=== PATIENT | male | born 1940 | race Caucasian/White ===

== ENCOUNTER → 2018-05-04 | Outpatient (CLI) | payer MEDICARE, BC ==
[~2018-05-04] MED LIST: CEPHALEXIN500 M1 PO; CRESTOR 10MG10 MG PO; FLOMAX 0.40.4 MG/CAP PO; PROSCAR 5MG5 MG PO; ZOCOR 40MG40 MG PO
== END ==
LOC: COL.VAS 10:28
DX: R22.42 Localized swelling, mass and lump, left lower limb (principal); M79.605 Pain in left leg

== ENCOUNTER 2019-08-01 10:42 | Inpatient (IN) | payer MEDICARE, BC ==
[~2019-08-01] VITALS: Ht 177.8 cm; Wt 101.1 kg
[2019-08-01] VITALS (12 sets, daily range): BP systolic 107–158; BP diastolic 52–99; PULSE 62–86; TEMP 97–97.5
[2019-08-01 11:30] LABS: HEMATOCRIT 46.9 % (42.0-52.0); HEMOGLOBIN 15.7 g/dl (13.5-18.0); MEAN CELL VOLUME 87 fl (80.0-100.0); MEAN CORPUSCULAR HEMOGLOBIN 29 pg (27.0-31.0); MEAN CORPUSCULAR HGB CONC 34 g/dl (33.0-37.0); MEAN PLATELET VOLUME 9.2 fl (7.4-10.4); PLATELET COUNT 269 K/mm3 (130-400); RED BLOOD COUNT 5.39 M/mm3 (4.20-5.60); REDCELL DISTRIBUTION WIDTH-CV 13.2 % (11.5-14.5)
[2019-08-01 11:38] LABS: CALCIUM 9.5 mg/dL (8.4-10.2); CREATININE, serum 1.08 (0.66-1.25); MAGNESIUM 2.1 mg/dL (1.6-2.3); POTASSIUM 4.2 mmol/L (3.4-5.0)
[2019-08-01 11:47] LABS: INR 1.3 (0.8-3.0); PROTHROMBIN TIME 15.1 SECONDS (9.7-12.8)
[2019-08-01 11:50] LABS: PARTIAL THROMBOPLASTIN TIME 42.6 SECONDS (26.0-37.0)
[2019-08-01] MEDS ORDERED: ELIQUIS 5MG PO (11:57)
[2019-08-01] MEDS ORDERED: TOPROL XL 25MG25 MG PO (11:58)
[2019-08-01 12:08] LABS: THYROID STIMULATING HORMONE 2.41 uIU/mL (0.465-4.680)
--- NOTE | 2019-08-01 13:15 | NUR ---
LLOYD/CV complete and report received from Kiara Almazan RN. Pt resting well in bed, family at bedside.
--- NOTE | 2019-08-01 15:30 | NUR ---
Pt has ambulated and joseline PO intake s n/v.
--- NOTE | 2019-08-01 15:45 | NUR ---
Phone report given to Samantha MOORE on medical.
--- NOTE | 2019-08-01 16:10 | NUR ---
PATIENT ADMITED INTO ROOM 318 POST CARDIOVERSION. PATIENT WILL START A SOTOLOL TRIAL. TELE INPLACE WITH HR IN 70'S IN SR. HEART SOUNDS REGULAR. PATIENT DENIES SOB OR CHEST PAIN. HEAD TO TOE ASSESSMENT WNL. SON AT BEDSIDE. ORIENTED TO ROOM. CALL LIGHT IN REACH.
--- NOTE | 2019-08-01 16:10 | NUR ---
Pt transfered to [facility] per w/c by nurse with son. Samantha RN notified and care transfered to [facility] at this time.
--- NOTE | 2019-08-01 20:15 | NUR ---
Patient in chair, awake. Denies pain. Most recent ekg QTc 432. First dose sotalol given. Tele reading afib, viviana 57. Denies further needs at this time. Will continue to monitor.
--- NOTE | 2019-08-02 02:07 | NUR ---
Patient in bed, awake. Denies pain. Denies further needs at this time. Will continue to monitor.
--- NOTE | 2019-08-02 04:40 | NUR ---
Patient in bed, resting. Tele is showing SR. Patient states he feels better, and less SOB. Denies pain. Denies further needs at this time. Will continue to monitor.
[2019-08-02 04:42] VITALS: BP 107/52; PULSE 65; TEMP 97.9
[2019-08-02 06:44] LABS: BASO % 0.5 % (0.0-2.0); EOS # 0.2 (0.0-0.7); EOS % 2.7 % (0-4.0); GRAN # 4.8 (1.4-6.5); GRAN % 56.9 % (42.2-75.2); HEMATOCRIT 39.8 % (42.0-52.0); LYMPH # 2.2 (1.2-3.4); LYMPH % 26.7 % (20.0-51.0); MEAN CELL VOLUME 89 fl (80.0-100.0); MEAN CORPUSCULAR HEMOGLOBIN 29 pg (27.0-31.0); MEAN CORPUSCULAR HGB CONC 33 g/dl (33.0-37.0); MEAN PLATELET VOLUME 9.8 fl (7.4-10.4); MONO # 1.1 (0.1-0.6); MONO % 12.7 % (1.7-9.3); PLATELET COUNT 250 K/mm3 (130-400); RED BLOOD COUNT 4.45 M/mm3 (4.20-5.60); REDCELL DISTRIBUTION WIDTH-CV 13.3 % (11.5-14.5)
[2019-08-02 06:46] LABS: INR 1.2 (0.8-3.0); PROTHROMBIN TIME 14.6 SECONDS (9.7-12.8)
[2019-08-02 06:51] LABS: HEMOGLOBIN 13.1 g/dl (13.5-18.0)
[2019-08-02 06:56] LABS: CALCIUM 8.9 mg/dL (8.4-10.2); CREATININE, serum 1.13 (0.66-1.25); POTASSIUM 4.1 mmol/L (3.4-5.0)
[2019-08-02 08:05] VITALS: BP 124/73; PULSE 58; TEMP 97.7
--- NOTE | 2019-08-02 08:43 | NUR ---
Pt awake and sitting up in the recliner, no C/O pain at this time, talkative, shift assessment complete, left Pt call light in reach.
--- NOTE | 2019-08-02 09:06 | NUR ---
SW met with the patient to discuss discharge plan. The patient lives [place] with his , Laurel (ph#[phone]). He reports independence with ADLs and has a walking stick. The patient's PCP is Dr. Jaquan Thompson and he receives his medications at [facility]. He reports no difficulties obtaining his meds. The patient does not have advanced directives in EMR, but he states that he does have them completed and at home. He states that his DPOA-HC is his son, Ilya Moncada. The patient plans to return home with his upon discharge. No additional needs at this time.
[2019-08-02 11:47] VITALS: BP 115/67; PULSE 55; TEMP 97.4
[2019-08-02 16:48] VITALS: BP 125/67; PULSE 58; TEMP 97.5
[2019-08-02 19:17] VITALS: BP 136/60; PULSE 55; TEMP 97.2
--- NOTE | 2019-08-02 19:27 | NUR ---
Pt resting in room today, no C/O pain throughout, VS have remained stable.
--- NOTE | 2019-08-02 19:28 | NUR ---
Report given to TERESA Marquez.
--- NOTE | 2019-08-02 20:00 | NUR ---
Resting in bed. Assessment complete. Lungs clear. Heart sounds normal. Bowels active x4. Pulses strong throughout. Bilateral lower leg edema +1. INT left forearm without complications. Patient denies pain. Denies needs at this time. Call light in reach.
[2019-08-02 23:14] VITALS: BP 122/50; PULSE 58; TEMP 97.6
[2019-08-03 04:48] VITALS: BP 124/61; PULSE 56; TEMP 97.8
--- NOTE | 2019-08-03 05:22 | NUR ---
Resting in bed. Denies needs. Call light in reach.
--- NOTE | 2019-08-03 05:47 | NUR ---
Patient had uneventful night. Resting in bed this AM. Call light in reach.
[2019-08-03 06:42] LABS: BASO % 0.5 % (0.0-2.0); EOS # 0.3 (0.0-0.7); EOS % 3.5 % (0-4.0); GRAN # 4.3 (1.4-6.5); GRAN % 58.4 % (42.2-75.2); HEMATOCRIT 38.5 % (42.0-52.0); HEMOGLOBIN 12.8 g/dl (13.5-18.0); LYMPH # 1.9 (1.2-3.4); LYMPH % 25.2 % (20.0-51.0); MEAN CELL VOLUME 89 fl (80.0-100.0); MEAN CORPUSCULAR HEMOGLOBIN 30 pg (27.0-31.0); MEAN CORPUSCULAR HGB CONC 33 g/dl (33.0-37.0); MEAN PLATELET VOLUME 9.9 fl (7.4-10.4); MONO # 0.9 (0.1-0.6); PLATELET COUNT 243 K/mm3 (130-400); RED BLOOD COUNT 4.32 M/mm3 (4.20-5.60); REDCELL DISTRIBUTION WIDTH-CV 13.1 % (11.5-14.5)
[2019-08-03 06:57] LABS: CALCIUM 8.8 mg/dL (8.4-10.2); CREATININE, serum 0.98 (0.66-1.25); MAGNESIUM 2.1 mg/dL (1.6-2.3); POTASSIUM 4.3 mmol/L (3.4-5.0)
[2019-08-03 07:12] LABS: INR 1.3 (0.8-3.0); PROTHROMBIN TIME 14.8 SECONDS (9.7-12.8)
--- NOTE | 2019-08-03 07:28 | NUR ---
Report given to TERESA Roger
[2019-08-03 07:43] VITALS: BP 121/63; PULSE 61; TEMP 97.6
--- NOTE | 2019-08-03 11:03 | NUR ---
Pt awake and alert sitting up in the recliner, no C/O pain at this time. shift assessments complete, left Pt call light in reach.
[2019-08-03 11:14] VITALS: BP 118/57; PULSE 57; TEMP 97.5
[2019-08-03] MEDS ORDERED: BETAPACE 80MG80 MG PO (11:47)
--- NOTE | 2019-08-03 13:32 | NUR ---
Pt discharged to home, escorted to entrance, left with spouse via private auto.
== END 2019-08-03 13:32 | disposition home or self-care (01) | DRG 310 ==
LOC: COL.CAR 10:42 → MEDICAL 14:08
PROVIDERS: ADMIT Internal Medicine Cardiovascular Disease
PROC: 5A2204Z Restoration of Cardiac Rhythm, Single (ICD-10-PCS; principal; 2019-08-01)
DX: I48.0 Paroxysmal atrial fibrillation (principal)
CPT/HCPCS: J2704; J7030

== ENCOUNTER 2024-06-28 17:14 | Emergency (ER) | payer MEDICARE, BC ==
[~2024-06-28] VITALS: Ht 177.8 cm; Wt 131.8 kg
[~2024-06-28 17:14] MED LIST changes: +BETAPACE 80MG80 MG PO; +ELIQUIS 5MG PO; +LASIX 20MG TABL20 MG PO; +TOPROL XL 25MG25 MG PO
[2024-06-28 17:18] VITALS: TEMP 98.1
[2024-06-28 17:50] LABS: HEMOGLOBIN 11.4 g/dl (13.5-18.0); MEAN CELL VOLUME 86 fl (80.0-100.0); MEAN CORPUSCULAR HEMOGLOBIN 30 pg (27-31); MEAN CORPUSCULAR HGB CONC 35 g/dl (33.0-37.0); PLATELET COUNT 201 K/mm3 (130-400); RED BLOOD COUNT 3.82 M/mm3 (4.20-5.60); REDCELL DISTRIBUTION WIDTH-CV 13.8 % (11.5-14.5)
[2024-06-28 17:54] LABS: HEMATOCRIT 32.8 % (42.0-52.0)
[2024-06-28 18:02] LABS: ALBUMIN 3.1 g/dL (3.4-4.8); BILIRUBIN,TOTAL 0.7 mg/dL (0.2-1.2); CALCIUM 8.9 mg/dL (8.4-10.2); CREATININE, serum 1.23 mg/dL (0.72-1.25); POTASSIUM 3.4 mEq/L (3.5-4.5); TOTAL PROTEIN 6.3 g/dl (6.2-8.1)
[2024-06-28 18:08] LABS: TROPONIN-I 0.027 ng/mL (0.00-0.033)
[2024-06-28 18:47] LABS: BAND 18 % (0-10); EOSINOPHIL 2 % (0-4); LYMPHOCYTE 13 % (20.0-51.0); METAMYELOCYTE 1 % (0-0); NEUTROPHILS 40 % (42.0-75.2)
[2024-06-28 20:24] VITALS: BP 167/85; PULSE 61
== END 2024-06-28 20:25 | disposition home or self-care (01) ==
LOC: COL.ER 17:14
PROVIDERS: Physician Assistant
DX: R06.02 Shortness of breath (principal); I48.91 Unspecified atrial fibrillation; Z79.01 Long term (current) use of anticoagulants; Z79.899 Other long term (current) drug therapy

== ENCOUNTER → 2024-07-24 | Outpatient (CLI) | payer MEDICARE, BC ==
[~2024-07-24] MED LIST changes: +Albuterol 0.083% Neb Soln 2.5 MG/3 ML UD IH ONE
== END ==
LOC: COL.VAS 11:59
DX: I51.7 Cardiomegaly (principal)